=== PATIENT | male | born 2000 | race Caucasian/White ===

== ENCOUNTER 2021-06-24 20:50 | Emergency (ER) | payer OTHER ==
[~2021-06-24 20:50] MED LIST: AUGMENTIN 875-1 EACH PO; CIPRO HC OTIC S10 ML EARRT; ERYTHROMYCIN O3.5 GM OU; PREDNISONE 20 M20 MG PO
== END 2021-06-24 22:11 | disposition home or self-care (01) ==
LOC: ER1 20:50
DX: U07.1 COVID-19 (principal); F17.290 Nicotine dependence, other tobacco product, uncomplicated
CPT/HCPCS: 81001; 87086; 99283; U0003

== ENCOUNTER 2021-10-12 21:08 | Emergency (ER) | payer OTHER | END 2021-10-12 22:24 | disposition home or self-care (01) | LOC: ER1 21:08 | DX: T16.2XXA Foreign body in left ear, initial encounter (principal); F17.290 Nicotine dependence, other tobacco product, uncomplicated; X58.XXXA Exposure to other specified factors, initial encounter | CPT/HCPCS: 69200; 99282 ==

== ENCOUNTER 2022-05-21 09:34 | Emergency (ER) | payer OTHER ==
[~2022-05-21 09:34] MED LIST changes: +NAPROSYN500 MG PO
[2022-05-21] MEDS ORDERED: CYCLOBENZAPRINE10 MG PO (12:32)
[2022-05-21] MEDS ORDERED: IBUPROFEN800 MG PO (12:32)
== END 2022-05-21 12:55 | disposition home or self-care (01) ==
LOC: ER1 09:34
DX: M54.50 Low back pain, unspecified (principal); F17.290 Nicotine dependence, other tobacco product, uncomplicated
CPT/HCPCS: 96372; 99283; J1885